=== PATIENT | female | born 1955 | race Caucasian/White ===

== ENCOUNTER → 2020-01-22 | Outpatient (CLI) | payer OTHER ==
--- NOTE | 2020-01-23 08:33 | MR ---
EXAMINATION TYPE: MR hand LT wo con DATE OF EXAM: 01/22/2020 COMPARISON: None HISTORY: Pain left middle finger, PIP osteoarthritis Standard multiplanar, multisequence MRI departmental protocol Multiplanar, multisequence images of the left were acquired. Diffusion weighted imaging was performed . FINDINGS: There is severe degenerative narrowing involving the PIP joint involving the third digit. There is gutierrez bchondral sclerosis and bone marrow edema noted involving both the proximal phalanx and adjacent to m iddle phalanx of the third digit. There is surrounding fluid. Mild lateral subluxation is noted of th e middle phalanx relative to the proximal phalanx. Infection is difficult to exclude given the lack o f contrast although the findings are felt to be related to advanced degenerative change. Consider WBC scan if infection continues to be a consideration. Mild degenerative narrowing and small amount of j oint effusion noted involving the second and fourth PIP joints. No evidence for fracture at this time . No bony lesions. No soft tissue masses 7. Cystic change noted involving the third metatarsal head. IMPRESSION: 1. Severe degenerative change involving the third PIP joint of the left hand felt to reflect advanced osteoarthritis. Consider WBC scan if infection is a concern.
== END | disposition home or self-care (01) ==
LOC: RADMRIMAIN 19:03
PROVIDERS: ATTEND Orthopaedic Surgery
DX: M19.042 Primary osteoarthritis, left hand (principal)